=== PATIENT | female | born 1955 | race African-American/Black ===

== ENCOUNTER → 2017-04-04 | Outpatient (CLI) | payer MEDICARE ==
[2014-10-26 14:45] VITALS: BP 164/89
[~2017-04-04] MED LIST: AMLO1CAP12 PO; ATOR40TA59 PO; CEFU500T46 PO; FLUC100T4 PO; HYDR-2762 PO; IBUP-1060 PO; METF500T4 PO; METR500T8 PO; OMEP20CA9 PO; VALS1TAB18 PO
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
== END | disposition home or self-care (01) ==
LOC: PNCL 10:42
PROVIDERS: ATTEND Anesthesiology
DX: M54.5 Low back pain (principal); M79.605 Pain in left leg
CPT/HCPCS: G0463

== ENCOUNTER → 2017-04-19 | Outpatient (CLI) | payer MEDICARE ==
[2014-10-26 14:45] VITALS: BP 164/89
[~2017-04-19] MED LIST changes: +IOHEXOL 180 MG/ML 20ML VIAL. ONE; +methylPREDNISolone ACETATE 40 MG/ML VIAL. ONE; +methylPREDNISolone ACETATE 80 MG/ML VIAL. ONE
== END | disposition home or self-care (01) ==
LOC: PNCL 12:39
PROVIDERS: ATTEND Anesthesiology
DX: M51.16 Intervertebral disc disorders with radiculopathy, lumbar region (principal)
CPT/HCPCS: 62323; J1030; J1040

== ENCOUNTER → 2017-05-08 | Outpatient (CLI) | payer MEDICARE ==
[2014-10-26 14:45] VITALS: BP 164/89
[~2017-05-08] MED LIST changes: +IOHEXOL 180 MG/ML 10 ML VIAL. ONE; -IOHEXOL 180 MG/ML 20ML VIAL. ONE
--- NOTE | 2017-05-09 00:23 | PAIN ---
DATE OF SERVICE: 05/08/2017 PROGRESS NOTE FOR PAIN CLINIC DIAGNOSES: Lumbar radiculopathy with lumbar degenerative disk disease. HISTORY OF PRESENT ILLNESS: The patient is a 62-year-old female, who returns for followup status post lumbar epidural steroid injection x 1. The patient reports about 50% improvement overall in her low back and left lower extremity pain. The patient reports it began to return after several days. The pain is not quite at the baseline, also range of pain 10 on a scale 10 today, describes it as dull, aching and unbearable at times. The patient reports it is in the low back, left leg, posterior gluteus, posterior thigh, posterior calf with radiation with walking, standing, worse better with lying down, ____ sleeping about 6 hours at night, but does awaken her from sleep occasionally, but not every night. The patient reports no new motor or sensory deficits. No new bowel or bladder incontinence or other complaints. PHYSICAL EXAMINATION: VITAL SIGNS: The patient's blood pressure 119/75, pulse 94, respirations 20, temperature is 98.4 degrees Fahrenheit, weight is 210 pounds. GENERAL: The patient is awake, alert, oriented, appropriate, very pleasant demeanor. HEENT: Head shows normocephalic, atraumatic. Extraocular movements are intact and symmetrical. Oral cavity, mucous membranes are moist and pink. Dentition is intact. NECK: Shows anterior throat supple without palpable lymphadenopathy noted. Swallow reflex is symmetrical. CHEST: Shows normal on inspection. Breath sounds clear to auscultation bilaterally. HEART: Shows S1 and S2 clear. No murmurs auscultated. ABDOMEN: Soft, nontender, nondistended. BACK: Shows spine grossly midline. Lumbar paraspinous musculature shows symmetrical with inspection normal appearing lordotic curvature. Paraspinous musculature shows [id number] tenderness to palpation in the lower lumbar distribution bilaterally, but appears again symmetrical, no evidence of tenderness with palpation over the sacroiliac regions or the sacrum. EXTREMITIES: The patient's lower extremities showed deep tendon reflexes at 1+ in the patellar and tendo calcaneus tendons. Motor exam is strong with 4/5 on the left with dorsiflexion, extension and 5/5 on the right. Peripheral pulses are 1+ posterior tibial and dorsalis pedis pulses. No peripheral edema is noted bilaterally. Options were discussed with the patient and the patient's old chart was reviewed as her current medication regimen updated. Current review of systems updated today as well and we will proceed with a second in the series of lumbar epidural steroid injection with fluoroscopic guidance. Risks were again discussed including, but not limited to bleeding, infection, possibility of epidural hematoma, subsequent neurologic compromise, dural puncture, headaches, spinal cord and/or nerve damage, side effects of steroid medication and poor results regarding pain control. The patient understands and wishes to proceed. The patient will return to clinic in approximately 2 weeks for followup. She was counseled to return appointment, activity level and side effects to be aware of. DIAGNOSES: Lumbar radiculopathy with lumbar degenerative disk disease. PROCEDURES: Lumbar epidural steroid injection in translaminar approach at L4-L5 level using C-arm fluoroscopic guidance under sterile prep and drape using local anesthetic. MEDICATIONS INJECTED: Depo-Medrol 120 mg plus 10 mL preservative-free normal saline and 2 mL of Isovue for contrast. CONDITION AT DISCHARGE: Stable. The patient tolerated procedure well, had no complications. GISELLE YANG MD DR: GUILHERME/ricky JOB#: [id number] / [id number]
== END | disposition home or self-care (01) ==
LOC: PNCL 12:58
PROVIDERS: ATTEND Anesthesiology
DX: M51.16 Intervertebral disc disorders with radiculopathy, lumbar region (principal)
CPT/HCPCS: 62323; J1030; J1040

== ENCOUNTER 2017-08-03 12:23 | Emergency (ER) | payer MEDICARE ==
[~2017-08-03] VITALS: Ht 167.6 cm; Wt 94.8 kg
[~2017-08-03 12:23] MED LIST changes: -IOHEXOL 180 MG/ML 10 ML VIAL. ONE; -methylPREDNISolone ACETATE 40 MG/ML VIAL. ONE; -methylPREDNISolone ACETATE 80 MG/ML VIAL. ONE
[2017-08-03 12:40] VITALS: BP 140/76
--- NOTE | 2017-08-03 13:26 | PHYS DOC ---
Past Medical History Past Medical History: Diabetes-Type II, High Cholesterol, Hypertension Additional Past Medical Histor: niddm Past Surgical History: , Tonsillectomy Alcohol Use: Occasionally Drug Use: None Adult General Chief Complaint Chief Complaint: FOOT INJURY PAIN [facility] HPI Patient is a 62 year old female presents the ED complaining of left foot injury 2 hours. Patient states that she was trying to move out of the way of a falling icebox and twisted her left foot. Describes pain as sharp. Rates the pain as 7 out of 10. She is able to ambulate on her own but complains of pain. Denies fever, head/neck injury, hip pain, LOC or vision changes. Review of Systems Review of Systems Constitutional: Denies fever or chills [] Eyes: Denies change in visual acuity, redness, or eye pain [] HENT: Denies nasal congestion or sore throat [] Respiratory: Denies cough or shortness of breath [] Cardiovascular: No additional information not addressed in HPI [] GI: Denies abdominal pain, nausea, vomiting, bloody stools or diarrhea [] : Denies dysuria or hematuria [] Musculoskeletal: Complains of foot pain. Denies back pain. [] Integument: Denies rash or skin lesions [] Neurologic: Denies headache, focal weakness or sensory changes [] Endocrine: Denies polyuria or polydipsia [] Allergies Allergies Allergies Coded Allergies Type Severity Reaction Last Updated Verified tramadol Allergy Intermediate Nausea and Vomiting 08/03/17 Yes Physical Exam Physical Exam Constitutional: Well developed, well nourished, no acute distress, non-toxic appearance. [] HENT: Normocephalic, atraumatic, bilateral external ears normal, oropharynx moist, no oral exudates, nose normal. [] Eyes: PERRLA, EOMI, conjunctiva normal, no discharge. [] Neck: Normal range of motion, no tenderness, supple, no stridor. [] Cardiovascular:Heart rate regular rhythm, no murmur [] Lungs & Thorax: Bilateral breath sounds clear to auscultation [] Abdomen: Bowel sounds normal, soft, no tenderness, no masses, no pulsatile masses. [] Skin: Warm, dry, no erythema, no rash. [] Back: No tenderness, no CVA tenderness. [] Extremities: MILD LEFT LATERAL MID FOOT TENDERNESS. NO OVERLYING SKIN CHANGES OR SWELLING., no cyanosis, no clubbing, ROM intact, no edema. [] Neurologic: Alert and oriented X 3, normal motor function, normal sensory function, no focal deficits noted. [] Psychologic: Affect normal, judgement normal, mood normal. [] Current Patient Data Vital Signs Vital Signs Date Time Temp Pulse Resp B/P (MAP) Pulse Ox O2 Delivery O2 Flow Rate FiO2 08/03/17 12:40 97.8 99 18 97 Room Air 97.8 EKG EKG [] Radiology/Procedures Radiology/Procedures []PROCEDURE: FOOT LEFT 3V 3 views left foot 08/03/2017 2:46 PM Indication: injury lateral. Injury today Comparison: None Findings: There is an acute horizontally oriented fracture (Saleem fracture) at the base of the fifth metatarsal. No other fracture or dislocation is identified. Associated soft tissue edema is noted. Impression: Acute, traumatic fracture at the base of the fifth metatarsal Course & Med Decision Making Course & Med Decision Making Pertinent Labs and Imaging studies reviewed. (See chart for details) []Patient's pain improved. Patient placed in splint. Neurovascular intact post placement. Patient given crutches but unable to use them. Patient given walker and told to remain nonweightbearing until seen by orthopedics this week. Discussed the importance of follow-up and the difficulty of this type of fractures ability to heal if not cared for properly. Discussed reasons to return to the ED. Patient understands and agrees with plan. Family at bedside. Dragon Disclaimer Dragon Disclaimer This electronic medical record was generated, in whole or in part, using a voice recognition dictation system. Departure Departure Impression: Primary Impression: Foot fracture, left Disposition: 01 HOME, SELF-CARE Condition: IMPROVED Referrals: PAUL ZHANG MD (PCP) GABRIELA BENITEZ MD Patient Instructions: Foot Fracture Scripts Hydrocodone/Apap 5-325 (NORCO 5-325 TABLET) 1 Each Tablet 1 TAB PO TID, #8 TAB Prov: GUADALUPE BANSAL 08/03/17 GUADALUPE BANSAL Aug 03, 2017 13:26
--- NOTE | 2017-08-03 14:35 | RAD ---
3 views left foot 08/03/2017 2:46 PM Indication: injury lateral. Injury today Comparison: None Findings: There is an acute horizontally oriented fracture (Saleem fracture) at the base of the fifth metatarsal. No other fracture or dislocation is identified. Associated soft tissue edema is noted. Impression: Acute, traumatic fracture at the base of the fifth metatarsal
[2017-08-03] MEDS ORDERED: HYDR-971 PO (14:47)
== END 2017-08-03 15:08 | disposition home or self-care (01) ==
LOC: ER 12:23
DX: S92.352A Displaced fracture of fifth metatarsal bone, left foot, initial encounter for closed fracture (principal); I10 Essential (primary) hypertension; E11.9 Type 2 diabetes mellitus without complications; E78.00 Pure hypercholesterolemia, unspecified; Z88.6 Allergy status to analgesic agent; X50.3XXA Overexertion from repetitive movements, initial encounter; Y99.8 Other external cause status; Y93.89 Activity, other specified; Y92.89 Other specified places as the place of occurrence of the external cause
CPT/HCPCS: 29515; 73630; 99284-25

== ENCOUNTER → 2017-09-29 | Outpatient (CLI) | payer MEDICARE ==
[~2017-09-29] MED LIST changes: +HYDR-971 PO; +IOHEXOL 180 MG/ML 10 ML VIAL. ONE; +methylPREDNISolone ACETATE 40 MG/ML VIAL. ONE; +methylPREDNISolone ACETATE 80 MG/ML VIAL. ONE
--- NOTE | 2017-09-29 15:16 | PAIN ---
DATE OF SERVICE: 09/29/2017 DIAGNOSES: Lumbar radiculopathy with lumbar degenerative disk disease. HISTORY OF PRESENT ILLNESS: The patient is a 62-year-old female who returns for followup, last seen 05/08/2017. The patient did quite well after the last injection with 50% plus improvement until just a few weeks ago. Pain has begun to return in her low back and left lower extremities. It was previously worse with standing, walking, changing positions, sitting and lying down is better. It wakes her from sleep occasionally, but not every night. She needs to be repositioned usually when she lays on her left side and it awakens her; repositioning or laying on the right side, she is able to get back to sleep without difficulty. The patient reports her pain a 10 on a scale of 10 at its worst, least, and average and is a 10 on a scale of 10 today. The patient reports it is severe, aching, dull, radiating, also some sharp pains and now stabbing and shooting in the left leg over the posterior gluteus, posterolateral thigh, lateral anterior thigh, medial lower leg as well as posterior lower leg to the ankle. The patient reports no new motor or sensory deficits, no new bowel or bladder incontinence or other complaints. PHYSICAL EXAMINATION: VITAL SIGNS: Today, the patient's blood pressure 171/101, pulse 119, respirations 18, temperature 97.9 degrees Fahrenheit, is 5 feet 6 inches, weighs 216 pounds. GENERAL: The patient is awake, alert, oriented, appropriate, very pleasant demeanor. HEENT: Head shows normocephalic and atraumatic. Extraocular movements are intact and symmetrical. Oral cavity: Mucous membranes are moist and pink. Dentition is intact. NECK: Shows anterior throat is supple without palpable lymphadenopathy noted. Swallow reflex is symmetrical. CHEST: Shows normal on inspection. Breath sounds are clear to auscultation bilaterally. HEART: Shows S1 and S2 clear. No murmurs auscultated. ABDOMEN: Soft, nontender and nondistended. No palpable organomegaly is noted. No rebound or guarding demonstrated. BACK: Shows spine grossly in the midline. Normal appearing thoracic kyphosis and lumbar lordotic curvature. Lumbar paraspinous musculature shows symmetrical on inspection with palpation shows some moderate tenderness in the low lumbar distribution but only diffusely without radiation. The patient shows good rotational motion in lumbar spine both laterally as well as extension and flexion without difficulty. Lower extremities show deep tendon reflexes at 1+ in the patellar and tendo calcaneus tendons are equal. Motor exam is approximately 4 on a scale of 5 with left dorsiflexion and extension 5/5 on the right. Peripheral pulses are 1+ posterior tibial. No peripheral edema is noted bilaterally. Options were discussed with the patient. The patient's old chart was reviewed as her current medication regimen and updated. Current review of systems is updated today as well. We will proceed with the third in the series of lumbar epidural steroid injection with fluoroscopic guidance. Risks were again discussed including, but not limited to bleeding, infection, possibility of epidural hematoma, subsequent neurologic compromise, dural punctures, headaches, spinal cord and/or nerve damage, side effects of steroid medication and poor results regarding pain control. The patient understands and wished to proceed. The patient will return to clinic in approximately 2 weeks for followup. She was counseled on return appointment, activity level and side effects to be aware of. DIAGNOSES: Lumbar radiculopathy with lumbar degenerative disk disease. PROCEDURES: Lumbar epidural steroid injection translaminar approach, L4-L5 level using C-arm fluoroscopic guidance under sterile prep and drape using local anesthetic. MEDICATIONS INJECTED: A total of 120 mg Depo-Medrol plus 10 mL preservative-free normal saline, 2 mL of Isovue for contrast. CONDITION AT DISCHARGE: Stable. The patient tolerated procedure well, had no complications. GISELLE YANG MD DR: GUILHERME/ricky JOB#: [id number] / [id number]
== END | disposition home or self-care (01) ==
LOC: PNCL 08:59
PROVIDERS: ATTEND Anesthesiology
DX: M51.16 Intervertebral disc disorders with radiculopathy, lumbar region (principal); Z88.8 Allergy status to other drugs, medicaments and biological substances
CPT/HCPCS: 62323; J1030; J1040

== ENCOUNTER → 2017-10-13 | Outpatient (CLI) | payer MEDICARE | END | disposition home or self-care (01) | LOC: PNCL 09:25 | DX: M48.061 Spinal stenosis, lumbar region without neurogenic claudication (principal); M51.26 Other intervertebral disc displacement, lumbar region | CPT/HCPCS: G0463 ==

== ENCOUNTER → 2018-08-24 | Outpatient (CLI) | payer MEDICARE ==
[~2018-08-24] MED LIST changes: +LIDOCAINE 1% PF 2 ML VIAL. ONE; +METF500T16 PO; -METF500T4 PO
--- NOTE | 2018-08-24 19:59 | PAIN ---
DATE OF SERVICE: 08/24/2018 PROGRESS NOTE FOR PAIN CLINIC DIAGNOSES: Lumbar radiculopathy with lumbar degenerative disk disease. HISTORY OF PRESENT ILLNESS: The patient is a 63-year-old female who returns for followup status post lumbar epidural steroid injections, most recently seen in September 2017. The patient did well, about 50% improvement with her previous injections but reports that she has had one injection at [facility] in May of this year, which was not helpful. The patient reports still significant pain in the low back, left lower extremity, mostly traveled in the posterior gluteus, lateral anterior thigh, anterior medial thigh, medial knee, lateral thigh as well as into the medial calf. The patient reports it is worse with walking, standing, changing positions, becoming worse. It is a radiating pain, describes unbearable, aching, shooting, stabbing at times as well as dull and sharp alternating in the back itself. It is worse with standing and walking, better with sitting or lying down but does awaken her from sleep about every 5 hours if she lies on her left side. The patient reports the pain is a 10 on a scale of 10 at all times, worst, least and average and is a 10 today. The patient reports no new motor or sensory deficits and no new bowel or bladder incontinence or other complaints. PHYSICAL EXAMINATION: VITAL SIGNS: The patient's blood pressure 131/72, pulse 96, respirations are 18 and temperature is 98.2 degrees Fahrenheit. Weight is 224 pounds. GENERAL: The patient is awake, alert, oriented, appropriate and very pleasant demeanor. HEENT: Head shows normocephalic and atraumatic. Extraocular movements are intact and symmetrical. Oral cavity: Mucous membranes are moist and pink. Dentition is intact. NECK: Shows anterior throat supple without palpable lymphadenopathy noted. Swallow reflex is symmetrical. CHEST: Shows normal with inspection. Breath sounds clear to auscultation bilaterally. HEART: Shows S1 and S2 clear. No murmurs auscultated. ABDOMEN: Soft, nontender and nondistended. No palpable organomegaly is noted. No rebound or guarding demonstrated. BACK: Shows spine grossly in the midline. Normal-appearing thoracic kyphosis and some minor flattening of lumbar lordotic curvature. Lumbar paraspinous muscle shows symmetrical on inspection, on palpation shows some moderate tenderness but only diffusely bilaterally without radiation. No trigger points. No tenderness over the spinous processes, sacrum or sacroiliac regions. The patient's lumbar spine shows good rotational motion both laterally as well as extension and flexion without significant difficulty. EXTREMITIES: Lower extremities show deep tendon reflexes at 1+ in the patellar and tendo-calcaneus tendons. Motor exam is approximately 4 on a scale of 5 with left dorsiflexion and extension and 5/5 on the right. Peripheral pulses are 1+ posterior tibia. No peripheral edema is noted bilaterally. Options were discussed with the patient. The patient's old chart was reviewed as well as her current medication regimen updated. Current review of systems updated today as well. We will proceed with a lumbar epidural steroid injection today with fluoroscopic guidance. Risks were again discussed including, but not limited to bleeding, infection, possibility of epidural hematoma and subsequent neurological compromise, dural puncture, headaches, spinal cord and/or nerve damage, side effects of steroid medication and poor results regarding pain control. The patient understands and wished to proceed. The patient will return to the clinic in approximately 2 weeks for followup, was counseled as to return appointment, activity level and side effects to be aware of. DIAGNOSIS: Lumbar radiculopathy with lumbar degenerative disk disease. PROCEDURE: Lumbar epidural steroid injection, translaminar approach at the L3-L4 level using C-arm fluoroscopic guidance under sterile prep and drape using local anesthetic. MEDICATIONS INJECTED: A total of 120 mg Depo-Medrol plus 10 mL of preservative-free normal saline and 2 mL of Isovue for contrast. CONDITION AT DISCHARGE: Stable. The patient tolerated the procedure well and had no complications. GISELLE YANG MD DR: GUILHERME/ricky JOB#: [id number] / [id number]
== END | disposition home or self-care (01) ==
LOC: PNCL 07:17
PROVIDERS: ATTEND Anesthesiology
DX: M51.16 Intervertebral disc disorders with radiculopathy, lumbar region (principal); Z88.6 Allergy status to analgesic agent; Z88.5 Allergy status to narcotic agent
CPT/HCPCS: 62323; J1030; J1040; Q9965

== ENCOUNTER 2018-12-21 11:32 | Emergency (ER) | payer MEDICARE ==
[~2018-12-21] VITALS: Ht 170.2 cm; Wt 94.8 kg
[~2018-12-21 11:32] MED LIST changes: -HYDR-2762 PO; +HYDR-2765 PO; +HYDR-3164 PO; -HYDR-971 PO; -IOHEXOL 180 MG/ML 10 ML VIAL. ONE; -LIDOCAINE 1% PF 2 ML VIAL. ONE; +METR-34 PO; -METR500T8 PO; +OMEP20CA10 PO; -OMEP20CA9 PO; -methylPREDNISolone ACETATE 40 MG/ML VIAL. ONE; -methylPREDNISolone ACETATE 80 MG/ML VIAL. ONE
[2018-12-21] MEDS ORDERED: MAGNESIUM CITRATE 296 ML SOLUTION. PO ONE (12:00)
[2018-12-21] MEDS ORDERED: diazePAM 5 MG TABLET PO ONE (12:00)
[2018-12-21] MEDS: methylPREDNISolone SOD SUCC PF 125 MG/2 ML VIAL. IM ONE ×2 (12:12→12:15)
[2018-12-21 12:15] LABS: BILIRUBIN,URINE SMALL (NEG); CLARITY,URINE CLOUDY; COLOR,URINE AMBER; NITRITE,URINE NEGATIVE (NEG); PROTEIN,URINE 30 mg/dL (NEG-TRACE); UROBILINOGEN,URINE 0.2 mg/dL (0.2 mg/dL)
[2018-12-21 12:30] LABS: HYALINE CASTS, URINE FEW /HPF; SQUAMOUS EPITHELIAL CELL,UR MOD /LPF
[2018-12-21 12:33] LABS: BACTERIA,URINE 0 /HPF (0-FEW); RBC,URINE 0 /HPF (0-2); TRICHOMONAS,URINE PRESENT; WBC,URINE TNTC /HPF (0-4)
[2018-12-21] MEDS ORDERED: metroNIDAZOLE 500 MG TABLET PO ONE (13:30)
[2018-12-21] MEDS ORDERED: cefTRIAXone IM 250 MG VIAL IM ONE (13:30)
[2018-12-21] MEDS ORDERED: AZITHROMYCIN 250 MG TABLET. PO ONE (13:30)
[2018-12-21 13:58] VITALS: BP 140/76
--- NOTE | 2018-12-21 14:03 | PHYS DOC ---
Past Medical History Past Medical History: Diabetes-Type II, High Cholesterol, Hypertension, Sciatica Additional Past Medical Histor: niddm Past Surgical History: , Tonsillectomy Alcohol Use: Occasionally Drug Use: None Adult General Chief Complaint Chief Complaint: LOWER BACK PAIN OR INJURY [facility] HPI Patient is a 63 year old female with history of hypertension, diabetes type 2, sciatica pain, chronic low back pain, who presents today complaining of 9 out of 10 left low back pain nonradiating in nature that began one week ago. Patient denies any known injury. She states the pain is worse on ambulation. Patient states she has been following up with the pain clinic for injections, she states she is not due for any infection right now. She denies any loss of bowel bladder function, denies any numbness or tingling to bilateral lower extremities. Patient is also complaining of constipation, last bowel movement was 4 days ago. Patient is also complaining of greenish vaginal discharge since Monday. Denies any concerns for STDs. Review of Systems Review of Systems Constitutional: Denies fever or chills [] Eyes: Denies change in visual acuity, redness, or eye pain [] HENT: Denies nasal congestion or sore throat [] Respiratory: Denies cough or shortness of breath [] Cardiovascular: No additional information not addressed in HPI [] GI: Reports greenish vaginal discharge. Reports constipation. Denies abdominal pain, nausea, vomiting, bloody stools or diarrhea [] : Denies dysuria or hematuria [] Musculoskeletal: Reports low back pain Integument: Denies rash or skin lesions [] Neurologic: Denies headache, focal weakness or sensory changes [] All other systems were reviewed and found to be within normal limits, except as documented in this note. Current Medications Current Medications Current Medications Medications (Trade) Dose Ordered Sig/Autumn Start Time Stop Time Status Last Admin Dose Admin Azithromycin (Zithromax) 1,000 mg 1X ONCE 12/21/18 13:30 12/21/18 13:31 DC 12/21/18 13:44 1,000 MG Ceftriaxone Sodium (Rocephin Im) 250 mg 1X ONCE 12/21/18 13:30 12/21/18 13:31 DC 12/21/18 13:39 250 MG Diazepam (Valium) 5 mg 1X ONCE 12/21/18 12:00 12/21/18 12:01 DC 12/21/18 12:12 5 MG Magnesium Citrate (Citroma) 296 ml 1X ONCE 12/21/18 12:00 12/21/18 12:01 DC 12/21/18 12:13 296 ML Methylprednisolone Sodium Succinate (SOLU-Medrol 125MG VIAL) 125 mg 1X ONCE 12/21/18 12:00 12/21/18 12:01 DC Metronidazole (Flagyl) 2,000 mg 1X ONCE 12/21/18 13:30 12/21/18 13:31 DC 12/21/18 13:45 2,000 MG Allergies Allergies Allergies Coded Allergies Type Severity Reaction Last Updated Verified tramadol Adverse Reaction Intermediate Nausea and Vomiting 10/13/17 Yes aspirin Adverse Reaction Unknown bruises all over 10/13/17 Yes Physical Exam Physical Exam Constitutional: Well developed, well nourished, no acute distress, non-toxic appearance. [] HENT: Normocephalic, atraumatic, bilateral external ears normal, oropharynx moist, no oral exudates, nose normal. [] Eyes: PERRLA, EOMI, conjunctiva normal, no discharge. [] Neck: Normal range of motion, no tenderness, supple, no stridor. [] Cardiovascular:Heart rate regular rhythm, no murmur [] Lungs & Thorax: Bilateral breath sounds clear to auscultation [] Abdomen: Bowel sounds normal, soft, no tenderness, no masses, no pulsatile masses. [] Pelvic exam External pelvic appears normal, vaginal vault with mild amount of greenish discharge, no CMT, no adnexal tenderness, cervix not well visualized. Skin: Warm, dry, no erythema, no rash. [] Back: Diffuse paraspinal muscle tenderness to the left lumbar spine, no midline lumbar spine tenderness, no CVA tenderness. [] Extremities: No tenderness, no cyanosis, no clubbing, ROM intact, no edema. [] Neurologic: Alert and oriented X 3, normal motor function, normal sensory function, no focal deficits noted. [] Psychologic: Affect normal, judgement normal, mood normal. [] Current Patient Data Vital Signs Vital Signs Date Time Temp Pulse Resp B/P (MAP) Pulse Ox O2 Delivery O2 Flow Rate FiO2 12/21/18 13:58 140/76 (97) 12/21/18 11:40 98.9 116 14 97 Room Air 98.9 Lab Values Laboratory Tests Test 3/8/19 11:40 Urine Collection Type Unknown Urine Color Rosemarie Urine Clarity Cloudy Urine pH 5.0 Urine Specific [place] 1.025 Urine Protein 30 mg/dL (NEG-TRACE) Urine Glucose (UA) Negative mg/dL (NEG) Urine Ketones (Stick) Trace mg/dL (NEG) Urine Blood Trace (NEG) Urine Nitrite Negative (NEG) Urine Bilirubin Small (NEG) Urine Urobilinogen Dipstick 0.2 mg/dL (0.2 mg/dL) Urine Leukocyte Esterase Large (NEG) Urine RBC 0 /HPF (0-2) Urine WBC Tntc /HPF (0-4) Urine Squamous Epithelial Cells Mod /LPF Urine Bacteria 0 /HPF (0-FEW) Urine Hyaline Casts Few /HPF Urine Mucus Mod /LPF Urine Trichomonas Present Microbiology 12/21/18 Wet Prep - Final, Complete EKG EKG [] Radiology/Procedures Radiology/Procedures [] Course & Med Decision Making Course & Med Decision Making Pertinent Labs and Imaging studies reviewed. (See chart for details) This is a 63-year-old female patient presenting to the ED today with multiple complaints, patient is complaining of exacerbation of chronic low back pain, no oral injury, negative cauda equina syndrome symptoms. She is also complaining of constipation. I offered her Valium for her back pain and magnesium citrate for constipation in the ED. Discourage patient from taking any narcotics considering her constipation. She was also complaining of vaginal discharge, noted for Trichomonas, noted for UTI, noted for BV. Treated in the ED. Significant other was also present he was treated in the ED. Both of them were given STD education. Discharge and cyclobenzaprine. Dragon Disclaimer Dragon Disclaimer This electronic medical record was generated, in whole or in part, using a voice recognition dictation system. Departure Departure Impression: Primary Impression: Constipation Additional Impressions: Trichomonal vaginitis Bacterial vaginosis Urinary tract infection Chronic low back pain Disposition: 01 HOME, SELF-CARE Condition: STABLE Referrals: PAUL ZHANG MD (PCP) Follow-up in one week Patient Instructions: Back Pain, Adult, Constipation, Adult, Trichomoniasis- Brief, Urinary Tract Infection Additional Instructions: You were evaluated in the emergency room for multiple complaints including back pain, constipation, STD, UTI, take the prescribed medications as ordered. Do not have any sex for one week. Contact all your sex for partners and, let them know you were treated for STDs and ask them to seek treatment too. Scripts Metronidazole (FLAGYL) 500 Mg Tablet 1 TAB PO BID, #10 TAB Prov: JOSH BEAVERS APRN 12/21/18 Sulfamethoxazole/Trimethoprim (BACTRIM DS TABLET) 1 Each Tablet 1 TAB PO BID, #14 TAB Prov: JOSH BEAVERS APRN 12/21/18 Problem Qualifiers Primary Impression: Constipation Constipation type: unspecified constipation type Qualified Codes: K59.00 - Constipation, unspecified Additional Impressions: Urinary tract infection Urinary tract infection type: acute cystitis Hematuria presence: without hematuria Qualified Codes: N30.00 - Acute cystitis without hematuria Chronic low back pain Back pain laterality: left Sciatica presence: without sciatica Qualified Codes: M54.5 - Low back pain; G89.29 - Other chronic pain JOSH BEAVERS APRN Dec 21, 2018 14:03
[2018-12-21] MEDS ORDERED: METR500T PO (14:11)
[2018-12-21] MEDS ORDERED: SULF1TAB24 PO (14:11)
[2018-12-24 14:19] LABS: GC PROBE Negative (Negative)
== END 2018-12-21 14:22 | disposition home or self-care (01) ==
LOC: ER 11:32
DX: N30.00 Acute cystitis without hematuria (principal); K59.00 Constipation, unspecified; A59.01 Trichomonal vulvovaginitis; N76.0 Acute vaginitis; B96.89 Other specified bacterial agents as the cause of diseases classified elsewhere; G89.29 Other chronic pain; M54.40 Lumbago with sciatica, unspecified side; E11.8 Type 2 diabetes mellitus with unspecified complications; E78.00 Pure hypercholesterolemia, unspecified; I10 Essential (primary) hypertension; Z88.6 Allergy status to analgesic agent
CPT/HCPCS: 81001; 87086; 87491; 87591; 96372; 99284; J0696; Q0111; Q0144; J2930

== ENCOUNTER 2018-12-26 22:31 | Emergency (ER) | payer MEDICARE ==
[~2018-12-26] VITALS: Ht 170.2 cm; Wt 99.8 kg
[~2018-12-26 22:31] MED LIST changes: +METR500T PO; +SULF1TAB24 PO
--- NOTE | 2018-12-26 23:26 | PHYS DOC ---
Past Medical History Past Medical History: Diabetes-Type II, High Cholesterol, Hypertension, Sciatica Additional Past Medical Histor: niddm Past Surgical History: , Tonsillectomy Alcohol Use: Occasionally Drug Use: None Adult General Chief Complaint Chief Complaint: ABDOMINAL PAIN HPI HPI 63-year-old female presents to ER for complaints of mid abdominal pain which radiates into her mid back. Patient states symptoms started late yesterday and has worsened today. Patient states she has had nausea and vomiting denies any diarrhea. Patient denies fever but has had chills intermittently. Patient states on Monday she was diagnosed with Trichomonas and has been on Flagyl with last dose due tomorrow. Patient states she was also advised to take laxatives for ongoing constipation issues. Pt denies any chest pain or shortness of air. Pt denies any alcohol intake in the past week while on the Flagyl prescription. Patient states she is a daily smoker. Patient states she has not been monitoring her blood sugars as she is type 2 DM. Review of Systems Review of Systems Constitutional: Denies fever. Reports chills Eyes: Denies change in visual acuity, redness, or eye pain [] HENT: Denies nasal congestion or sore throat [] Respiratory: Denies cough or shortness of breath [] Cardiovascular: Denies CP/palpitations GI: Denies bloody stools or diarrhea. Reports mid abd pain radiating into mid sides and into mid back. Reports intermittent N/V. Reports constipation : Denies dysuria or hematuria. Denies vaginal d/c or bleeding Musculoskeletal: Denies joint pain. Reports mid back pain Integument: Denies rash or skin lesions [] Neurologic: Denies headache, focal weakness or sensory changes. Denies dizziness Endocrine: Denies polyuria or polydipsia [] All other systems were reviewed and found to be within normal limits, except as documented in this note. Current Medications Current Medications Current Medications Medications (Trade) Dose Ordered Sig/Autumn Start Time Stop Time Status Last Admin Dose Admin Fentanyl Citrate (Fentanyl 2ml Vial) 25 mcg 1X ONCE 12/26/18 23:45 12/26/18 23:46 DC 12/26/18 23:41 25 MCG Info (CONTRAST GIVEN -- Rx MONITORING) 1 each PRN DAILY PRN 12/27/18 00:15 12/27/18 02:01 DC Iohexol (Omnipaque 300 Mg/ml) 60 ml 1X ONCE 12/27/18 00:30 12/27/18 00:31 DC 12/27/18 00:38 60 ML Multi-Ingredient Mouthwash/Gargle (Gi Cocktail) 20 ml 1X ONCE 12/27/18 01:30 12/27/18 01:31 DC 12/27/18 01:51 20 ML Ondansetron HCl (Zofran) 4 mg 1X ONCE 12/26/18 23:45 12/26/18 23:46 DC 12/26/18 23:41 4 MG Sodium Chloride 1,000 ml @ 1,000 mls/hr 1X ONCE 12/26/18 23:45 12/27/18 00:44 DC 12/26/18 23:40 1,000 MLS/HR Allergies Allergies Allergies Coded Allergies Type Severity Reaction Last Updated Verified aspirin Adverse Reaction Intermediate bruises all over 12/27/18 Yes tramadol Adverse Reaction Intermediate Nausea and Vomiting 10/13/17 Yes Physical Exam Physical Exam Constitutional: Well developed, well nourished, no acute distress, non-toxic appearance. Fatigued appearance HENT: Normocephalic, atraumatic, mucous membranes pink/dry, nose normal. [] Eyes: Pupils equal, conjunctiva normal, no discharge. [] Neck: Normal range of motion, no tenderness, supple, no stridor. [] Cardiovascular: Heart rate regular rhythm, no murmur [] Lungs & Thorax: Bilateral breath sounds clear to auscultation. Resp. equal/nonlabored Abdomen: Bowel sounds normal, soft/obese, tender on palp. side to side mid abd- no focal area, no rebound tenderness, no masses, no pulsatile masses. [] Skin: Warm, dry, no erythema, no rash. [] Back: No tenderness, no CVA tenderness. [] Extremities: No tenderness, no cyanosis, no clubbing, ROM intact, 1+ bilat. pedal edema- she reports chronic no acute changes Neurologic: Alert and oriented X 3, normal motor function, normal sensory function, no focal deficits noted. [] Psychologic: Affect normal, judgement normal, mood normal. [] Current Patient Data Vital Signs Lab Values Laboratory Tests Test 12/26/18 23:10 12/27/18 00:40 White Blood Count 9.1 x10^3/uL (4.0-11.0) Red Blood Count 4.20 x10^6/uL (3.50-5.40) Hemoglobin 13.9 g/dL (12.0-15.5) Hematocrit 41.4 % (36.0-47.0) Mean Corpuscular Volume 99 fL (79-100) Mean Corpuscular Hemoglobin 33 pg (25-35) Mean Corpuscular Hemoglobin Concent 34 g/dL (31-37) Red Cell Distribution Width 12.6 % (11.5-14.5) Platelet Count 334 x10^3/uL (140-400) Neutrophils (%) (Auto) 66 % (31-73) Lymphocytes (%) (Auto) 25 % (24-48) Monocytes (%) (Auto) 5 % (0-9) Eosinophils (%) (Auto) 3 % (0-3) Basophils (%) (Auto) 1 % (0-3) Neutrophils # (Auto) 6.0 x10^3uL (1.8-7.7) Lymphocytes # (Auto) 2.3 x10^3/uL (1.0-4.8) Monocytes # (Auto) 0.5 x10^3/uL (0.0-1.1) Eosinophils # (Auto) 0.2 x10^3/uL (0.0-0.7) Basophils # (Auto) 0.1 x10^3/uL (0.0-0.2) Sodium Level 134 mmol/L (136-145) L Potassium Level 4.5 mmol/L (3.5-5.1) Chloride Level 98 mmol/L (98-107) Carbon Dioxide Level 26 mmol/L (21-32) Anion Gap 10 (6-14) Blood Urea Nitrogen 18 mg/dL (7-20) Creatinine 1.4 mg/dL (0.6-1.0) H Estimated GFR (Cockcroft-Gault) 45.7 BUN/Creatinine Ratio 13 (6-20) Glucose Level 335 mg/dL (70-99) H Calcium Level 10.0 mg/dL (8.5-10.1) Magnesium Level 1.7 mg/dL (1.8-2.4) L Total Bilirubin 0.3 mg/dL (0.2-1.0) Aspartate Amino Transferase (AST) 8 U/L (15-37) L Alanine Aminotransferase (ALT) 13 U/L (14-59) L Alkaline Phosphatase 87 U/L (46-116) Troponin I Quantitative < 0.017 ng/mL (0.000-0.055) Total Protein 7.5 g/dL (6.4-8.2) Albumin 3.6 g/dL (3.4-5.0) Albumin/Globulin Ratio 0.9 (1.0-1.7) L Lipase 212 U/L (73-393) Urine Collection Type Void Urine Color Yellow Urine Clarity Clear Urine pH 5.5 Urine Specific [place] 1.015 Urine Protein Negative mg/dL (NEG-TRACE) Urine Glucose (UA) >=1000 mg/dL (NEG) Urine Ketones (Stick) Negative mg/dL (NEG) Urine Blood Negative (NEG) Urine Nitrite Negative (NEG) Urine Bilirubin Negative (NEG) Urine Urobilinogen Dipstick 0.2 mg/dL (0.2 mg/dL) Urine Leukocyte Esterase Negative (NEG) Urine RBC 6-10 /HPF (0-2) Urine WBC 1-4 /HPF (0-4) Urine Squamous Epithelial Cells Many /LPF Urine Bacteria 0 /HPF (0-FEW) Urine Yeast Present /HPF Laboratory Tests 12/26/18 23:10 Laboratory Tests 12/26/18 23:10 EKG EKG EKG obtained 12/26/18 at [address] Hudson Sinus rhythm Ltward axis Rate 94 No STEMI Radiology/Procedures Radiology/Procedures PROCEDURE: CHEST AP ONLY PROCEDURE: CHEST AP ONLY CLINICAL INDICATION: CHEST PAIN COMPARISON: None FINDINGS: No pneumothorax identified. Cardiac and mediastinal contours unremarkable. No pulmonary consolidation or acute airspace disease. No acute osseous abnormalities identified. IMPRESSION: No pulmonary consolidation or acute airspace disease. Electronically signed by: Bry Philip DO (12/27/2018 1:10 AM) [facility] DICTATED and SIGNED BY: BRY PHILIP DO DATE: 12/27/18109 PROCEDURE: CT ABD PELV W/ IV CONTRST ONLY PQRS Compliance statement: One or more of the following individualized dose reduction techniques were utilized for this examination: 1. Automated exposure control. 2. Adjustment of the mA and/or kV according to patient size. 3. Use of iterative reconstruction technique. Indication:ABD PAIN, NAUSEA, VOMITING; OMNI 300, 60ML TECHNIQUE: CT abdomen and pelvis with IV contrast with multiplanar reformats. COMPARISON: None FINDINGS: Heart is normal in size. No pericardial or pleural effusion. Clear lung bases. Liver, spleen, gallbladder, pancreas, adrenals within normal limits. Most likely a simple cyst in the upper pole of the left kidney measuring 2.8 cm. No nephrolithiasis or hydronephrosis. No enlarged retroperitoneal or pelvic adenopathy. Moderate diffuse atherosclerotic disease of the abdominal aorta and bilateral iliac arteries. No bowel obstruction. Normal appendix. Diffuse rugal thickening is seen in the stomach. No pneumoperitoneum. Anteverted uterus. Urinary bladder is within normal limits. No suspicious bony lesion. IMPRESSION: Diffuse gastric rugal thickening. Correlate for symptoms of gastritis. Electronically signed by: Bry Philip DO (12/27/2018 12:54 AM) [facility] DICTATED and SIGNED BY: BRY PHILIP DO DATE: 12/27/18 0054 Course & Med Decision Making Course & Med Decision Making Pertinent Labs and Imaging studies reviewed. (See chart for details) 0035: Patient is just now been taking for her CT abdomen and pelvis. She reports she has had no relief in symptoms after receiving IV fluids and pain medicati on. She remains fatigued in appearance. She has had no active vomiting while in the ER. EKG was obtained with no acute ST elevation or STEMI and troponin was <0.017. Pt continues to deny any chest pain or shortness of air. WBCs are normal limits at 9.1 with no left shift. Blood sugar was 335 with normal limit anion gap at 10. She has not provided any urinalysis as of yet. Pt was evaluated for c/o abd pain with intermittent N/V- she has been on antibiotics for tx of trich w/last dose due tomorrow. Pt received IV flds/pain meds. She had labs and CT/xray obtained. Labs unremarkable; EKG with no acute STEMI and troponin neg. UA neg. for leuks/blood/ketones. CT abd/pelvis with report of findings of gastritis- test results were discussed with pt and GI cocktail was provided. Pt reported sxs much improved following GI cocktail. Discussed OTC Maalox and probiotics use. Pt encouraged to increase fluids. Discussed plans for home d/c with pt to f/u with her PCP for re-eval. Education provided on s&s to return to ER for and d/c instructions were discussed. Pt was in no distress at time of d/c discussion and comfortable with home d/c plan as discussed. Dragon Disclaimer Dragon Disclaimer This electronic medical record was generated, in whole or in part, using a voice recognition dictation system. Departure Departure Impression: Primary Impression: Gastritis Disposition: HOME, SELF-CARE Condition: STABLE Referrals: PAUL ZHANG MD (PCP) Patient Instructions: Gastritis, Adult Additional Instructions: As discussed you can take [id number] probiotics to help with abdominal pain while on the antibiotics. Maalox is another option for treatment-take as directed on container. Increase fluid intake and monitor your blood sugar. If taking narcotic pain medications it is important to also take laxatives to decrease risk of constipation. Keep scheduled appointment with your primary care physician on Monday-if symptoms worsen or with concerns call the office for possible sooner appointment. KENN MAHER APRN Dec 26, 2018 23:26
[2018-12-26 23:36] LABS: BASO # 0.1 x10^3/uL (0.0-0.2); BASO % 1 % (0-3); EOS # 0.2 x10^3/uL (0.0-0.7); EOS % 3 % (0-3); HEMATOCRIT 41.4 % (36.0-47.0); HEMOGLOBIN 13.9 g/dL (12.0-15.5); LYMPH # 2.3 x10^3/uL (1.0-4.8); LYMPH % 25 % (24-48); MEAN CORPUSCULAR HEMOGLOBIN 33 pg (25-35); MEAN CORPUSCULAR HGB CONC 34 g/dL (31-37); MEAN CORPUSCULAR VOLUME 99 fL (79-100); MONO # 0.5 x10^3/uL (0.0-1.1); MONO % 5 % (0-9); NEUT % 66 % (31-73); PLATELET COUNT 334 x10^3/uL (140-400); RED CELL DISTRIBUTION WIDTH 12.6 % (11.5-14.5); WHITE BLOOD COUNT 9.1 x10^3/uL (4.0-11.0)
[2018-12-26] MEDS ORDERED: fentaNYL PF VIAL 100 MCG/2 ML VIAL IV ONE (23:45)
[2018-12-26] MEDS ORDERED: ONDANSETRON PF 4 MG/2 ML VIAL. IV ONE (23:45)
[2018-12-26] MEDS ORDERED: IV NORMAL SALINE 1000ML BAG 1,000 ML IV ONE (23:45)
[2018-12-26 23:46] LABS: CREATININE 1.4 mg/dL (0.6-1.0); GFR 45.7; POTASSIUM 4.5 mmol/L (3.5-5.1)
[2018-12-26 23:52] LABS: ALBUMIN 3.6 g/dL (3.4-5.0); ALBUMIN/GLOBULIN RATIO 0.9 (1.0-1.7); MAGNESIUM 1.7 mg/dL (1.8-2.4); TOTAL BILIRUBIN 0.3 mg/dL (0.2-1.0); TOTAL PROTEIN 7.5 g/dL (6.4-8.2)
[2018-12-27] MEDS ORDERED: CONTRAST GIVEN. MC PRN (00:15)
[2018-12-27] MEDS ORDERED: IOHEXOL 300 MG/ML 100ML VIAL. IV ONE (00:30)
--- NOTE | 2018-12-27 00:57 | RAD ---
PQRS Compliance statement: One or more of the following individualized dose reduction techniques were utilized for this examination: 1. Automated exposure control. 2. Adjustment of the mA and/or kV according to patient size. 3. Use of iterative reconstruction technique. Indication:ABD PAIN, NAUSEA, VOMITING; OMNI 300, 60ML TECHNIQUE: CT abdomen and pelvis with IV contrast with multiplanar reformats. COMPARISON: None FINDINGS: Heart is normal in size. No pericardial or pleural effusion. Clear lung bases. Liver, spleen, gallbladder, pancreas, adrenals within normal limits. Most likely a simple cyst in the upper pole of the left kidney measuring 2.8 cm. No nephrolithiasis or hydronephrosis. No enlarged retroperitoneal or pelvic adenopathy. Moderate diffuse atherosclerotic disease of the abdominal aorta and bilateral iliac arteries. No bowel obstruction. Normal appendix. Diffuse rugal thickening is seen in the stomach. No pneumoperitoneum. Anteverted uterus. Urinary bladder is within normal limits. No suspicious bony lesion. IMPRESSION: Diffuse gastric rugal thickening. Correlate for symptoms of gastritis. Electronically signed by: Bry Philip DO (12/27/2018 12:54 AM) [facility]
[2018-12-27 00:59] LABS: BILIRUBIN,URINE NEGATIVE (NEG); CLARITY,URINE CLEAR; COLOR,URINE YELLOW; NITRITE,URINE NEGATIVE (NEG); PH,URINE 5.5; PROTEIN,URINE NEGATIVE (NEG-TRACE); UROBILINOGEN,URINE 0.2 mg/dL (0.2 mg/dL)
--- NOTE | 2018-12-27 01:12 | RAD ---
PROCEDURE: CHEST AP ONLY CLINICAL INDICATION: CHEST PAIN COMPARISON: None FINDINGS: No pneumothorax identified. Cardiac and mediastinal contours unremarkable. No pulmonary consolidation or acute airspace disease. No acute osseous abnormalities identified. IMPRESSION: No pulmonary consolidation or acute airspace disease. Electronically signed by: Bry Philip DO (12/27/2018 1:10 AM) [facility]
[2018-12-27 01:18] LABS: BACTERIA,URINE 0 /HPF (0-FEW); SQUAMOUS EPITHELIAL CELL,UR MANY /LPF; YEAST,URINE PRESENT /HPF
[2018-12-27 01:20] VITALS: BP 134/68
[2018-12-27] MEDS ORDERED: LIDO:MAALOX 1:1 20 ML SINGLE DOSE. SWSW ONE (01:30)
--- NOTE | 2018-12-27 06:18 | EKG ---
[facility] [address] [place] [address] Test Date: 2018-12-26 Test Time: 23:04:18 Pat Name: IKE MOLINA Department: Room: Gender: F Material Attendant: : 1955 Requested By: KENN MAHER Order Number: [id number] Reading MD: Sage Barclay MD Measurements Intervals [place] Rate: 94 P: 55 WY: 150 QRS: -13 QRSD: 82 T: 49 QT: 348 QTc: 435 Interpretive Statements SINUS RHYTHM Electronically Signed On 01-03-2019 9:51:00 CDT by Sage Barclay MD
== END 2018-12-27 01:52 | disposition home or self-care (01) ==
LOC: ER 22:31
DX: K29.60 Other gastritis without bleeding (principal); R11.2 Nausea with vomiting, unspecified; E11.9 Type 2 diabetes mellitus without complications; E78.00 Pure hypercholesterolemia, unspecified; I10 Essential (primary) hypertension; F17.200 Nicotine dependence, unspecified, uncomplicated; Z90.89 Acquired absence of other organs; Z98.890 Other specified postprocedural states; Z88.5 Allergy status to narcotic agent; Z88.6 Allergy status to analgesic agent
CPT/HCPCS: 36415; 71045; 74177; 80053; 81001; 83690; 83735; 84484; 85025; 93005; 96361; 96374; 96375; 99284; J2405; J3010; J7030; Q9967

== ENCOUNTER → 2019-09-04 | Outpatient (CLI) | payer MEDICARE ==
[~2019-09-04] MED LIST changes: -AMLO1CAP12 PO; +AMLO1CAP13 PO; +ASPI81TA50 PO; +GABA300C18 PO; +IOHEXOL 180 MG/ML 10 ML VIAL. ONE; +METF10007 PO; +methylPREDNISolone ACETATE 40 MG/ML VIAL. ONE; +methylPREDNISolone ACETATE 80 MG/ML VIAL. ONE
--- NOTE | 2019-09-04 12:53 | PAIN ---
DATE OF SERVICE: 09/04/2019 PROGRESS NOTE FOR PAIN CLINIC DIAGNOSIS: Lumbar radiculopathy with lumbar degenerative disk disease. HISTORY OF PRESENT ILLNESS: The patient is a 64-year-old female who returns for followup status post lumbar epidural steroid injection x 1, last seen 08/24/2018. The patient did very well with about 90% improvement until about a month ago, the pain began to return in the low back, left lower extremity, posterior gluteus, lateral thigh, anterior thigh, medial thigh, medial groin, medial anterior knee and medial lower leg as well as lateral lower leg on the left side only. The patient reports it is worse with walking, standing, changing positions, better with sitting or lying down, does not awaken her from sleep generally, but has over the past week or so. The patient reports it is aching and sharp pain in the back, tingling and radiating, becoming more constant with walking, standing in the left leg, and sometimes unbearable. The patient reports it is a 9 on a scale of 10 at its worst over the past week, 8 on average, 8 at its least and is an 8 today. The patient reports no new motor or sensory deficits, no new bowel or bladder incontinence. Initially, she was doing distance walking, doing work activities, household activities, traveling with greater ease and comfort without significant limitation. PHYSICAL EXAMINATION: VITAL SIGNS: The patient's blood pressure 125/81, pulse 99, respirations 18, temperature 98.0 degrees Fahrenheit, height is 5 feet 6 inches, weight is 210 pounds. GENERAL: The patient is awake, alert, oriented, appropriate, very pleasant demeanor. HEENT: Shows normocephalic, atraumatic. Extraocular movements are intact and symmetrical. Oral cavity shows mucous membranes moist and pink. Dentition is intact. NECK: Shows anterior throat supple without palpable lymphadenopathy noted. Swallow reflex symmetrical. CHEST: Normal inspection. Breath sounds clear to auscultation bilaterally. HEART: Shows S1, S2 clear. No murmurs auscultated. ABDOMEN: Soft, nontender, nondistended. No palpable organomegaly is noted. No rebound or guarding demonstrated. BACK: Shows spine grossly in the midline. Normal appearing thoracic kyphosis and lumbar lordotic curvature. Lumbar paraspinous muscle shows symmetrical on inspection, on palpation shows some moderate tenderness diffusely bilaterally going diffusely without significant radiation. The patient has good rotational motion of lumbar spine, both laterally as well as extension and flexion without difficulty. EXTREMITIES: Lower extremities show deep tendon reflexes 1+ in the patellar and tendo-calcaneus tendons. Motor exam is approximately 4 on a scale 5 on the left and 5/5 on the right with dorsiflexion, extension, but intact. Quadriceps and hamstring flexion 5/5 bilaterally. Peripheral pulses are 1+ posterior tibial. No peripheral edema bilaterally. Options were discussed with the patient. The patient's old chart was reviewed as her current medication regimen updated. Current review of systems updated today as well. We will proceed with a lumbar epidural steroid injection today with fluoroscopic guidance. Risks were again discussed including, but not limited to bleeding, infection, possibility of epidural hematoma, subsequent neurological compromise, dural puncture, headaches, spinal cord and/or nerve damage, side effects of steroid medication and poor results regarding pain control. The patient understands and wished to proceed. The patient will return to the clinic in approximately 2 weeks for followup. She was counseled on return appointment, activity level and side effects to be aware of. DIAGNOSIS: Lumbar radiculopathy with lumbar degenerative disk disease. PROCEDURE: Lumbar epidural steroid injection, translaminar approach at the L3-L4 level using C-arm fluoroscopic guidance under sterile prep and drape using local anesthetic. MEDICATION INJECTED: A total of 120 mg of Depo-Medrol plus 10 mL of preservative-free normal saline and 2 mL of contrast. CONDITION AT DISCHARGE: Stable. The patient tolerated the procedure well, had no complications. GISELLE YANG MD DR: GUILHERME/nts JOB#: [id number] / [id number]
== END ==
LOC: PNCL 10:31
PROVIDERS: ATTEND Anesthesiology
DX: M51.16 Intervertebral disc disorders with radiculopathy, lumbar region (principal)
CPT/HCPCS: 62323; J1030; J1040; Q9965